=== PATIENT | male | born 1990 | race African-American/Black ===

== ENCOUNTER 2018-01-16 09:25 | Emergency (ER) | END 2018-01-16 11:15 | disposition home or self-care (01) ==

== ENCOUNTER 2018-01-27 21:36 | Emergency (ER) | END 2018-01-28 03:31 | disposition home or self-care (01) ==

== ENCOUNTER 2018-02-04 19:27 | Inpatient (IN) | END 2018-02-09 16:00 | disposition home or self-care (01) | DRG 574 ==

== ENCOUNTER 2018-02-13 15:32 | Emergency (ER) | END 2018-02-13 16:57 | disposition home or self-care (01) ==

== ENCOUNTER 2018-02-23 18:58 | Emergency (ER) | END 2018-02-24 01:23 | disposition home or self-care (01) ==

== ENCOUNTER 2018-03-29 19:59 | Emergency (ER) | END 2018-03-29 21:41 | disposition home or self-care (01) ==

== ENCOUNTER 2018-10-23 03:46 | Emergency (ER) | payer OTHER ==
[~2018-10-23] VITALS: Ht 180.3 cm; Wt 109.1 kg
[~2018-10-23 03:46] MED LIST: ACET325T33 PO; CEPH-443 PO; HYDR-3980 PO; HYDR25CA PO; IBUP-1561 PO; LORA1TAB PO; NAPR-688 PO; QUET100T PO; SULF1TAB31 PO; TRAM50TA2 PO
[2018-10-23 03:47] VITALS: Ht 180.3 cm; Wt 109.1 kg
--- NOTE | 2018-10-23 04:04 | ERD ---
ER Documentation Chief Complaint Chief Complaint STATES "I FEEL EDGY" AND ANXIOUS HPI The patient is a 28-year-old male, presenting to the ER because he feels very anxious, he has been drinking heavily for the last couple hours, denies suicidal/homicidal ideation, auditory/visual hallucination. He had presented to EMS with similar symptoms previously. He does not smoke, he is smoked marijuana Medical history: Depression, insomnia Past surgical history: None ROS All systems reviewed and are negative except as per history of present illness. Medications Home Meds Active Scripts Lorazepam* (Ativan*) 0.5 Mg Tablet, 0.5 MG PO Q8, #6 TAB Prov:ANYA PHAM MD 10/23/18 Tramadol HCl (Tramadol HCl) 50 Mg Tablet, 50 MG PO Q6 PRN for PAIN, #10 TAB Prov:EMELYN PATINO DO 03/29/18 Naproxen* (Naproxen*) 500 Mg Tablet, 500 MG PO BID PRN for PAIN, #20 TAB Prov:EMELYN PATINO DO 03/29/18 Hydroxyzine Pamoate* (Vistaril*) 25 Mg Capsule, 25 MG PO Q8 PRN for ANXIETY, #20 CAP Prov:EMELYN PATINO DO 03/29/18 Lorazepam* (Lorazepam*) 1 Mg Tablet, 1 MG PO Q8H PRN for INSOMNIA, #10 TAB Prov:DEBORAH PARKERSTOLOS Marian DO 02/24/18 Hydrocodone/Acetaminophen ([place] 10-325 Tablet) 1 Each Tablet, 1 TAB PO Q6H PRN for PAIN, #20 TAB Prov:DEBORAH PARKERSTOLOS A. DO 02/24/18 Sulfamethoxazole/Trimethoprim* (Bactrim Ds* Tablet) 1 Each Tablet, 1 TAB PO BID, #14 TAB Prov:LEJENNAOSDEBORAHSTOLOS A. DO 02/24/18 Cephalexin* (Keflex*) 500 Mg Capsule, 500 MG PO QID for 5 Days, CAP Prov:DEBORAH PARKERSTOLOS A. DO 02/24/18 Ibuprofen* (Motrin*) 400 Mg Tab, 400 MG PO Q6H PRN for PAIN AND OR ELEVATED TEMP, #30 TAB Prov:SAYDA HOLGUIN MD 02/13/18 Acetaminophen* (Tylenol*) 325 Mg Tablet, 1 TAB PO Q6 PRN for PAIN AND OR ELEVATED TEMP, #20 TAB Prov:SAYDA HOLGUIN MD 02/13/18 Quetiapine Fumarate* (Seroquel*) 100 Mg Tablet, 100 MG PO HS for 30 Days, #30 TAB Prov:SHERRY RODRIGUEZ MD 02/09/18 Hydrocodone/Acetaminophen ([place] 10-325 Tablet) 1 Each Tablet, 1 EACH PO Q6 for pain for 20 Days, TAB Prov:SHERRY RODRIGUEZ MD 02/09/18 Allergies Allergies: Coded Allergies: No Known Allergy (Unverified , 10/23/18) PMhx/Soc History of Surgery: Yes (L ankle SX, I&D R arm abscess, wisdom teeth,back cyst removal) Anesthesia Reaction: No Hx Neurological Disorder: Yes (seizure) Hx Respiratory Disorders: No Hx Cardiac Disorders: No Hx Psychiatric Problems: Yes (depression) Hx Miscellaneous Medical Probl: Yes (priapism) Hx Alcohol Use: Yes (7 hrs ago, "300mL vodka") Hx Substance Use: No Hx Tobacco Use: Yes (1 cigarette/ day) Physical Exam Vitals Vital Signs Date Temp Pulse Resp B/P (MAP) Pulse Ox O2 O2 Flow FiO2 Time Delivery Rate 10/23/18 81 16 130/82 98 Room Air 06:14 (98) 10/23/18 81 16 137/75 98 Room Air 05:31 (95) 10/23/18 98.7 81 22 170/108 97 03:47 (128) Physical Exam Const: No acute distress. Head: Atraumatic. Eyes: Normal Conjunctiva. ENT: Normal External Ears, Nose and Mouth. Neck: Full range of motion. No meningismus. Resp: Clear to auscultation bilaterally. Cardio: Regular rate and rhythm. Abd: Soft, non distended, normal bowel sounds, non tender. Skin: No petechiae or rashes. Back: No midline or flank tenderness. Ext: No cyanosis, or edema. Neur: Awake and alert. No focal deficit Psych: Anxious Results 24 hrs Current Medications Medications Dose Sig/Gregoria Start Time Status Last (Trade) Ordered Route PRN Stop Time Admin Dose Reason Admin Lorazepam 2 mg ONCE ONCE 10/23/18 DC 10/23/18 (Ativan) PO 04:30 10/23/18 04:22 04:31 Clonidine 0.2 mg ONCE ONCE 10/23/18 DC 10/23/18 (Catapres) PO 04:30 10/23/18 04:23 04:31 Procedures/MDM MEDICAL MAKING DECISION: The patient is a 28-year-old male, presenting with acute alcohol abuse, acute anxiety. He was treated with Ativan 2 mg p.o. and clonidine 0.2 mg with good response, is above outpatient follow-up The differential diagnoses considered include but are not limited to anxiety attack, panic attack, psychiatric illness, alcohol dependence Departure Diagnosis: Primary Impression: Alcohol abuse Condition: Good Comments The patient's blood pressure was elevated (>120/80) but appears stable without evidence of hypertension emergency or urgency. The patient was counseled about the risks of hypertension and urged to pursue outpatient monitoring and therapy within a week with their primary care physician. He was discharged with 6 tablets of Ativan 0.5 mg 3 times daily as needed I discussed the findings with the patient. I advised the patient to follow-up with the primary physician in about 2-3 days, sooner if needed and return if any concern. Disclaimer: Inadvertent spelling and grammatical errors are likely due to EHR/dictation software use and do not reflect on the overall quality of patient care. Also, please note that the electronic time recorded on this note does not necessarily reflect the actual time of the patient encounter. ANYA PHAM MD Oct 23, 2018 04:04
[2018-10-23] MEDS ORDERED: LORAZEPAM 1 MG TAB PO ONE (04:30)
[2018-10-23] MEDS ORDERED: LORA-441 PO (05:50)
[2018-10-23 06:14] VITALS: BP 130/82; PULSE 81; RESP 16
== END 2018-10-23 06:18 | disposition home or self-care (01) ==
LOC: E/R 03:46
DX: F10.10 Alcohol abuse, uncomplicated (principal); F17.210 Nicotine dependence, cigarettes, uncomplicated; R40.2142 Coma scale, eyes open, spontaneous, at arrival to emergency department; R40.2362 Coma scale, best motor response, obeys commands, at arrival to emergency department; R40.2252 Coma scale, best verbal response, oriented, at arrival to emergency department
CPT/HCPCS: Z7502; Z7610; 99283